=== PATIENT | female | born 1940 | race Caucasian/White ===

== ENCOUNTER → 2016-09-02 | Outpatient (CLI) | payer OTHER, MEDICARE ==
[~2016-09-02] MED LIST: ASPI325T39 PO; CALCTAB5 PO; GLUCOSAMINE PO; NASACORT NAE; OMEG10007 PO; PARO1TAB27 PO; SIMV20TA2 PO
[2016-09-02 13:09] LABS: BASO % 0.5 %; BASO ABS # 0.02 K/uL (0-0.2); COMPLETE YES; EOS % 4.8 %; HEMATOCRIT 40.2 % (37-47); IG% 0.3 %; LYMPH % 27.7 %; MEAN CELL VOLUME 90.1 fL (80-100); MEAN CORPUSCULAR HGB CONC 33.3 g/dl (32-36); MEAN PLATELET VOLUME 11.4 fL (7.4-10.4); MONO % 11.1 %; NEUT % 55.6 %; PLATELET COUNT 165 K/uL (130-400); RED BLOOD COUNT 4.46 M/uL (4.2-5.4); WHITE BLOOD COUNT 3.97 K/uL (4.8-10.8)
[2016-09-02 13:22] LABS: ALT/SGPT 30 U/L (12-78); BLOOD UREA NITROGEN 14 mg/dl (7-18); CALCIUM 9.1 mg/dl (8.5-10.1); CARBON DIOXIDE 31 mmol/L (21-32); CHLORIDE 104 mmol/L (98-107); CHOLESTEROL 166 mg/dl (0-200); CREATININE 0.76 mg/dl (0.60-1.20); GLUCOSE 95 mg/dl (70-99); POTASSIUM 4.3 mmol/L (3.5-5.1); SODIUM 139 mmol/L (136-145)
[2016-09-02 13:25] LABS: ALB/GLOB RATIO 1.2 (0.9-2); ALKALINE PHOSPHATASE 69 U/L (45-117); AST/SGOT 26 U/L (15-37); HDL CHOLESTEROL 83 mg/dl; LDL CHOLESTEROL CALCULATED 74 mg/dl; TRIGLYCERIDES 47 mg/dl (0-150); VERY LOW DENSITY LIPOPROT CALC 9 mg/dl
== END | disposition home or self-care (01) ==
LOC: C.LABMFLN 09:45
PROVIDERS: ATTEND Family Medicine
DX: Z86.73 Personal history of transient ischemic attack (TIA), and cerebral infarction without residual deficits (principal); E78.5 Hyperlipidemia, unspecified